=== PATIENT | male | born 1970 | race Two or more races ===

== ENCOUNTER 2019-09-15 20:06 | Emergency (ER) | payer MEDICAID ==
[~2019-09-15] VITALS: Ht 175.3 cm; Wt 104.5 kg
[2019-09-15] MEDS ORDERED: LISI-662 PO (20:38)
[2019-09-15] MEDS ORDERED: METF-960 PO (20:38)
[2019-09-15] MEDS ORDERED: ALOG25TA PO (20:38)
[2019-09-15] MEDS ORDERED: BUPIVACAINE HCL/PF 0.25% 10 ML VIAL INJ ONE (20:45)
[2019-09-15] MEDS ORDERED: PERTUSS(ACELL),DIPH,TET VAC/PF 0.5 ML VIAL IM ONE (20:45)
[2019-09-15 20:54] LABS: GLUCOSE,POINT OF CARE 193 MG/DL (70-110)
[2019-09-15 21:37] VITALS: BP 130/88
== END 2019-09-15 21:38 | disposition home or self-care (01) ==
LOC: EMS 20:10
DX: S61.217A Laceration without foreign body of left little finger without damage to nail, initial encounter (principal); E11.9 Type 2 diabetes mellitus without complications; I11.9 Hypertensive heart disease without heart failure; F17.210 Nicotine dependence, cigarettes, uncomplicated; Z79.84 Long term (current) use of oral hypoglycemic drugs; Z79.899 Other long term (current) drug therapy; W26.8XXA Contact with other sharp object(s), not elsewhere classified, initial encounter; Y93.89 Activity, other specified; Y92.89 Other specified places as the place of occurrence of the external cause; Y99.8 Other external cause status
CPT/HCPCS: 12001; 82962; 90471; 90715; 99283; J3490